=== PATIENT | male | born 1980 | race Caucasian/White ===

== ENCOUNTER 2016-11-27 07:13 | Emergency (ER) | payer OTHER ==
[~2016-11-27] VITALS: Ht 182.9 cm; Wt 109.0 kg
[~2016-11-27 07:13] MED LIST: ONDA4TAB7 SL
[2016-11-27 07:20] VITALS: TEMP 36.8; Ht 182.9 cm; Wt 109.0 kg
--- NOTE | 2016-11-27 07:48 | EMERGENCY ROOM VISIT NOTE ---
History First contact with patient: 07:18 Chief Complaint: LEG PAIN,LEG INJURY Stated Complaint: BULGING VEIN,SWOLLEN AREA,REDNESS,PAIN-LEFT LEG History of Present Illness The patient is a 36 year old male who presents to the Emergency Room with complaints of left leg pain and swelling. The patient reports that he has had pain in the left medial lower leg for the past several days and noticed redness and swelling of the area today. The patient reports that several years ago, he had been lifting 150 pounds of tile and developed a hematoma of his left thigh. Since then, he has had intermittent swelling of the left lower leg. He has a varicosity which occasionally becomes swollen. He states that when it does become swollen, and it feels hard to touch and is painful with movement. He typically rests for a few days and the pain improves. He reports that he was concerned because the skin over the area became red and this morning and he was concerned about possible blood poisoning. He has not been taking any medications for the pain. The patient is a smoker. He reports a car trip from [place] 2 weeks ago. He denies any history or family history of blood clots. He denies any chest pain or shortness of breath. He denies any numbness or weakness of the leg. Review of Systems A complete 6-point Review of Systems was discussed with the patient, with pertinent positives and negatives listed in the History of Present Illness. All remaining Review of Systems questions can be considered negative unless otherwise specified. Past Medical/Surgical History Medical Problems: (1) Adverse reaction to drug (2) ARF (acute renal failure) (3) Dehydration (4) Dental caries (5) Pain, dental (6) Rhabdomyolysis Family History FH: HTN (hypertension) FH: cancer FH: diabetes mellitus FH: kidney disease Social History Smoking Status: Current Every Day Smoker Alcohol Use: none Drug Use: none Marital Status: single Housing Status: lives with family Occupation Status: employed Current/Historical Medications Scheduled Enoxaparin (Lovenox), 1 ML SQ DAILY Warfarin Sodium (Coumadin), 7.5 MG PO DAILY Allergies Coded Allergies: BEE STING (Verified Allergy, Unknown, 11/27/16) Grass (Verified Allergy, Unknown, ., 11/27/16) Penicillins (Verified Allergy, Unknown, ? PENICILLIN, 11/27/16) PT STATES THIS WAS A CHILDHOOD ALLERGY. HAS TAKEN AMOXICILLIN BEFORE WITH NO COMPLICATIONS Physical Exam Vital Signs Date Time Temp Pulse Resp B/P Pulse Ox O2 Delivery O2 Flow Rate FiO2 11/27/16 10:33 89 18 136/74 95 11/27/16 07:20 36.8 76 18 139/83 98 Room Air Physical Exam VITALS: Vitals are noted on the nurse's note and reviewed by myself. Vital signs stable. GENERAL: This is a 36-year-old male, in no acute distress, nondiaphoretic, well- developed well-nourished. SKIN: Capillary reflex less than 2 seconds. HEART: Regular rate and rhythm without murmurs gallops or rubs. LUNGS: Clear to auscultation bilaterally without wheezes, rales or rhonchi. EXTREMITIES: There is a varicosity to the left medial lower leg which is slightly swollen, erythematous, warm to touch and tender. Dorsalis pedis pulse is 2+. NEURO: Patient was alert and oriented to person place and time. Normal sensation to light and sharp touch. Medical Decision & Procedures ER Provider Diagnostic Interpretation: ULTRASOUND LEFT VENOUS DOPP LOWER EXT UNILAT FINDINGS: Real-time and color flow Doppler imaging were performed. Flow was seen within the femoral, popliteal and calf veins with no intraluminal thrombus demonstrated. The saphenous vein is patent. No thrombus was visualized within the common femoral, superficial femoral, or popliteal veins. The proximal trifurcation veins of the calf appeared patent. There is a calf thrombus within a branch of the greater saphenous vein extending from the mid calf to the knee region. This thrombus measures 9 mm in diameter IMPRESSION: 1. No evidence of left lower extremity DVT 2. Prominent superficial thrombus within a calf vein (9 mm diameter thrombus). Laboratory Results 11/27/16 08:50 Red Blood Count 4.34, Mean Corpuscular Volume 90.8, Mean Corpuscular Hemoglobin 30.6, Mean Corpuscular Hemoglobin Concent 33.8, Mean Platelet Volume 9.9, Neutrophils (%) (Auto) 64.3, Lymphocytes (%) (Auto) 25.5, Monocytes (%) (Auto) 7.5, Eosinophils (%) (Auto) 1.7, Basophils (%) (Auto) 0.6, Neutrophils # (Auto) 4.47, Lymphocytes # (Auto) 1.77, Monocytes # (Auto) 0.52, Eosinophils # (Auto) 0.12, Basophils # (Auto) 0.04 11/27/16 08:50 Test 11/27/16 08:50 White Blood Count 6.95 K/uL (4.8-10.8) Red Blood Count 4.34 M/uL (4.7-6.1) Hemoglobin 13.3 g/dL (14.0-18.0) Hematocrit 39.4 % (42-52) Mean Corpuscular Volume 90.8 fL (80-100) Mean Corpuscular Hemoglobin 30.6 pg (25-34) Mean Corpuscular Hemoglobin Concent 33.8 g/dl (32-36) Platelet Count 229 K/uL (130-400) Mean Platelet Volume 9.9 fL (7.4-10.4) Neutrophils (%) (Auto) 64.3 % Lymphocytes (%) (Auto) 25.5 % Monocytes (%) (Auto) 7.5 % Eosinophils (%) (Auto) 1.7 % Basophils (%) (Auto) 0.6 % Neutrophils # (Auto) 4.47 K/uL (1.4-6.5) Lymphocytes # (Auto) 1.77 K/uL (1.2-3.4) Monocytes # (Auto) 0.52 K/uL (0.11-0.59) Eosinophils # (Auto) 0.12 K/uL (0-0.5) Basophils # (Auto) 0.04 K/uL (0-0.2) RDW Standard Deviation 43.8 fL (36.4-46.3) RDW Coefficient of Variation 13.1 % (11.5-14.5) Immature Granulocyte % (Auto) 0.4 % Immature Granulocyte # (Auto) 0.03 K/uL (0.00-0.02) Prothrombin Time 10.1 SECONDS (9.0-12.0) Prothromb Time International Ratio 0.9 (0.9-1.1) Activated Partial Thromboplast Time 25.7 SECONDS (21.0-31.0) Partial Thromboplastin Ratio 1.0 Anion Gap 8.0 mmol/L (3-11) Est Creatinine Clear Calc Drug Dose 145.9 ml/min Estimated GFR () 127.0 Estimated GFR (Non- 109.6 BUN/Creatinine Ratio 16.2 (10-20) Calcium Level 8.1 mg/dl (8.5-10.1) Chemistry Specimen Hemolysis Medications Administered Medications (Trade) Dose Ordered Sig/Ros Route Start Time Stop Time Status Last Admin Dose Admin Enoxaparin Sodium (Lovenox Inj) 150 mg NOW ONCE SQ 11/27/16 09:15 11/27/16 09:16 DC 11/27/16 09:28 150 MG Warfarin Sodium (Coumadin Tab) 7.5 mg NOW STAT PO 11/27/16 09:09 11/27/16 09:10 DC 11/27/16 09:25 7.5 MG Miscellaneous (Lovenox Teaching Kit) 1 ea NOW STAT N/A 11/27/16 09:27 11/27/16 09:28 DC 11/27/16 09:47 1 EA Medical Decision Differential diagnosis includes DVT, superficial thromboembolism, cellulitis, abscess, among others. The patient was evaluated as above. Ultrasound of the left lower extremity was performed and read by radiology and did show a prominent superficial thrombus. This does extend from the mid calf to the knee and will require anticoagulation. I spoke with the pharmacist, who recommended 150 mg Lovenox once daily and 7.5 mg Coumadin once daily. Lovenox teaching kit was reviewed with the patient by the nurse. I did have a lengthy discussion with the patient regarding the diagnosis and treatment plan. The transplant case manager spoke with the patient's primary care provider to set him up with an appointment this week. He was given an order to have his INR checked 2-3 days from now and will return for that. The patient was agreeable to this. He will return for any new /concerning symptoms. Based on the patient's presentation, lab results, and imaging studies, I feel the patient is stable for outpatient treatment. The patient's case was reviewed with Dr. Costello, ED attending physician, who agreed with my assessment and treatment plan. Discharge instructions were reviewed with the patient. The patient verbalized understanding of my assessment and treatment plan and was discharged home in good condition. Impression Primary Impression: Superficial thrombosis of leg Departure Information Dispostion Home / Self-Care Condition GOOD Prescriptions Warfarin Sodium (COUMADIN) 7.5 Mg Tab 7.5 MG PO DAILY for 10 Days, #10 TAB Prov: Meghann Kennedy ., CHALO 11/27/16 Enoxaparin (LOVENOX) 150 Mg/1 Ml Inj 1 ML SQ DAILY for 7 Days, #10 VIAL Prov: Meghann Kennedy ., CHALO 11/27/16 Referrals No Doctor, Assigned (PCP) Jerrell Rizzo M.D. Patient Instructions My [facility] Additional Instructions Lovenox and Coumadin as prescribed until further directed by your primary care provider. You have an appointment with your primary care provider this Sunday. Please be sure to keep this appointment. You have been given an order to have your INR checked this . Bring this order to the lab. Return to the emergency with worsening leg pain, worsening swelling, chest pain , shortness of breath or any other new/concerning symptoms.
--- NOTE | 2016-11-27 08:37 | DIAGNOSTIC IMAGING REPORT ---
ULTRASOUND LEFT VENOUS DOPP LOWER EXT UNILAT CLINICAL HISTORY: Left leg pain and swelling COMPARISON STUDY: No previous studies for comparison. FINDINGS: Real-time and color flow Doppler imaging were performed. Flow was seen within the femoral, popliteal and calf veins with no intraluminal thrombus demonstrated. The saphenous vein is patent. No thrombus was visualized within the common femoral, superficial femoral, or popliteal veins. The proximal trifurcation veins of the calf appeared patent. There is a calf thrombus within a branch of the greater saphenous vein extending from the mid calf to the knee region. This thrombus measures 9 mm in diameter IMPRESSION: 1. No evidence of left lower extremity DVT 2. Prominent superficial thrombus within a calf vein (9 mm diameter thrombus). Electronically signed by: Gus West M.D. 11/27/2016 8:35 AM Dictated Date/Time: 11/27/2016 8:33 AM
[2016-11-27 09:05] LABS: BASO % 0.6 %; BASO ABS # 0.04 K/uL (0-0.2); COMPLETE YES; EOS % 1.7 %; HEMATOCRIT 39.4 % (42-52); IG% 0.4 %; LYMPH % 25.5 %; LYMPH ABS # 1.77 K/uL (1.2-3.4); MEAN CELL VOLUME 90.8 fL (80-100); MEAN CORPUSCULAR HEMOGLOBIN 30.6 pg (25-34); MEAN CORPUSCULAR HGB CONC 33.8 g/dl (32-36); MEAN PLATELET VOLUME 9.9 fL (7.4-10.4); MONO % 7.5 %; NEUT % 64.3 %; PLATELET COUNT 229 K/uL (130-400); RED BLOOD COUNT 4.34 M/uL (4.7-6.1); WHITE BLOOD COUNT 6.95 K/uL (4.8-10.8)
[2016-11-27] MEDS ORDERED: WARFARIN SOD 7.5 MG TAB PO STA (09:09)
[2016-11-27] MEDS ORDERED: ENOXAPARIN 150 MG/1ML SYR SQ ONE (09:15)
[2016-11-27 09:16] LABS: INR 0.9 (0.9-1.1); PROTHROMBIN TIME (PATIENT) 10.1 SECONDS (9.0-12.0)
[2016-11-27] MEDS ORDERED: LOVENOX TEACHING KIT STA (09:27)
[2016-11-27 09:49] LABS: BUN/CREATININE RATIO 16.2 (10-20); CALCIUM 8.1 mg/dl (8.5-10.1); CREATININE 0.91 mg/dl (0.60-1.40); POTASSIUM 4.1 mmol/L (3.5-5.1)
[2016-11-27] MEDS ORDERED: WARF7.5T PO (10:24)
[2016-11-27] MEDS ORDERED: LVNIS150 SQ (10:24)
[2016-11-27 10:33] VITALS: BP 136/74; PULSE 89; O2SAT 95
== END 2016-11-27 10:30 | disposition home or self-care (01) ==
LOC: C.EDB 07:15 → C.EDA 10:30
DX: I82.812 Embolism and thrombosis of superficial veins of left lower extremity (principal); F17.200 Nicotine dependence, unspecified, uncomplicated; Z82.49 Family history of ischemic heart disease and other diseases of the circulatory system; Z83.3 Family history of diabetes mellitus

== ENCOUNTER → 2016-11-30 | Outpatient (CLI) | payer OTHER ==
[~2016-11-30] MED LIST changes: +LVNIS150 SQ; -ONDA4TAB7 SL; +WARF7.5T PO
[2016-11-30 13:09] LABS: INR 1.3 (0.9-1.1); PROTHROMBIN TIME (PATIENT) 13.7 SECONDS (9.0-12.0)
== END | disposition home or self-care (01) ==
LOC: C.LAB 12:04
PROVIDERS: ATTEND Emergency Medicine
DX: Z79.899 Other long term (current) drug therapy (principal)